=== PATIENT | male | born 1950 | race Caucasian/White ===

== ENCOUNTER 2016-12-19 05:43 | Day surgery (SDC) | END 2016-12-19 17:00 | disposition home or self-care (01) | DX: M51.26 Other intervertebral disc displacement, lumbar region (principal); M48.06 Spinal stenosis, lumbar region; E11.9 Type 2 diabetes mellitus without complications; I10 Essential (primary) hypertension; I25.2 Old myocardial infarction | CPT/HCPCS: 63030; 72100; 82962; 86850; 86900; 86901; 97162; J0360; J0702; J1100; J1170; J1644; J1815; J2250; J2405; J2765; J3010; J7999 ==